=== PATIENT | male | born 1965 | race Caucasian/White ===

== ENCOUNTER 2017-02-17 11:12 | Emergency (ER) | payer OTHER ==
--- NOTE | ~2017-02-17 | US84 ---
[id number] [facility] [address]. [place], [place] [address] [id number] E MR#: [id number] Acc #: [id number] NAME: JULIUS ECHEVARRIA : 1965 SEX: M STUDY DATE/TIME: 02/17/2017 13:35 UNIT: CHAR ROOM: STUDY DESCRIPTION: US LE Veins Complete Russ Stdy Attending Physician: Jovi Cardenas M.D. Ordering Physician: Ed Surjit Paniagua M.D. Primary Care Physician: Yeison Patrick M.D. MEDICAL IMAGING REPORT This report is preliminary unless electronic signature is present EXAM Bilateral lower extremity venous duplex 02/17/2017 HISTORY Bilateral lower extremity pain and swelling for 3 months. Pain worsened in the last 3 weeks. History of ACL repair right knee. Evaluate for deep vein thrombosis. TECHNIQUE Venous ultrasound examination of both lower extremities was performed using grayscale, spectral Doppler and color flow Doppler imaging. FINDINGS The examination is negative. There is no evidence of deep venous thrombus from the groin to the lower calf bilaterally. Visualized greater saphenous veins are also patent. IMPRESSION Negative examination. No evidence of lower extremity deep venous thrombosis. Dictated by... Deniz Ugalde M.D. THIS IS AN ELECTRONICALLY VERIFIED REPORT Deniz Ugalde M.D. at 02/18/2017 8:29 AM KRT/to TD: 02/17/2017 13:45 JOB #: [id number] MEDICAL IMAGING REPORT Page 1 of 1 COPY
[2017-02-17 10:21] LABS: URINE SOURCE CLEAN CATCH
[2017-02-17 10:27] LABS: URINE APPEARANCE CLEAR; URINE BILIRUBIN NEG (NEG); URINE BLOOD NEG (NEG); URINE COLOR YELLOW; URINE GLUCOSE NEG (NEG); URINE KETONE NEG (NEG); URINE LEUKOCYTE ESTERASE NEG (NEG); URINE NITRATE NEG (NEG); URINE PROTEIN NEG (NEG); URINE SPECIFIC GRAVITY 1.022 (1.003-1.035); URINE UROBILINOGEN 0.2 MG/DL (NEG)
[2017-02-17 10:28] LABS: BASOPHIL% 0.7 % (0-2.5); EOSINOPHIL# 0.1 X10e3 (0-0.7); EOSINOPHIL% 2.2 % (0.0-7.0); HEMATOCRIT 44.7 % (38.0-50.0); HEMOGLOBIN 15.1 gm/dL (13.0-16.0); LYMPHOCYTE# 2.1 X10e3 (1.0-3.5); LYMPHOCYTE% 34.1 % (17.0-45.0); MEAN CORPUSCULAR HGB CONC 33.7 g/dL (30-36); MONOCYTE# 0.6 X10e3 (0-1.0); NEUTROPHIL# 3.2 X10e3 (1.5-7.1); PLATELET COUNT 229 X10e3 (140-420); RED BLOOD COUNT 5.02 X10e (3.90-5.60); RED CELL DISTRIBUTION WIDTH 12.8 % (11.0-15.5)
[2017-02-17 10:30] LABS: CULTURE INDICATED? NO
[2017-02-17 10:30] LABS: DIFF IND NO
[2017-02-17 10:53] LABS: ALBUMIN SERUM 4.3 g/dL (3.5-5.0); BILIRUBIN, DIRECT 0.1 mg/dL (0.0-0.2); BILIRUBIN,INDIRECT 0.4 mg/dL (0.0-0.9); BILIRUBIN,TOTAL 0.5 mg/dL (0.2-2.0); BUN/CREATININE RATIO 25.71; CALCIUM SERUM 9.2 mg/dL (8.4-10.2); CREATININE SERUM 0.7 mg/dL (0.6-1.4); GLOM FILT RATE Estimated 107.8 mL/min (>60); POTASSIUM 3.9 mmol/L (3.5-5.1); PROTEIN TOTAL SERUM 7.7 g/dL (6.0-8.3)
[~2017-02-17 11:12] MED LIST: AMOXICILLIN PO; ASPIRIN325 M1 PO; AUGMENTIN PO; BENADRYL PO; COREG12.5 MG PO; COUMADIN5 MG PO; FLECAINIDE ACE100 MG PO; HYDROCHLOROTHIA25 MG PO; HYDROCODON-ACE1 EAC4 PO; KETOPROFEN PO; LORTAB 10-5001 EACH PO; LORTAB 10/500 T1 TAB PO; MOBIC15 MG PO; NEXIUM PO; PRILOSEC20 M1 PO; PRILOSEC40 MG PO; UNKNOWN BP MED
== END 2017-02-17 13:55 | disposition home or self-care (01) ==
LOC: CED 11:12
DX: R60.0 Localized edema (principal); G47.33 Obstructive sleep apnea (adult) (pediatric); I48.91 Unspecified atrial fibrillation; K21.9 Gastro-esophageal reflux disease without esophagitis; I10 Essential (primary) hypertension; Z90.49 Acquired absence of other specified parts of digestive tract; Z98.890 Other specified postprocedural states
CPT/HCPCS: 36415; 80048; 80076; 81003; 83690; 83880; 85025; 93970; 99284

== ENCOUNTER → 2017-02-25 | Outpatient (CLI) | payer OTHER ==
--- NOTE | ~2017-02-25 | US136 ---
[facility] A Service of [facility] RADIOLOGY TEXT RESULTS PATIENT: JULIUS ECHEVARRIA LOCATION: CNIV : 61 UNIT #: [id number] AGE: [address]: Pearl Hernandez MD SEX: M ORDER DR: [id number] [facility] [address]. [place], [place] [address] [id number] O MR#: [id number] Acc #: [id number] NAME: JULIUS ECHEVARRIA : 1965 SEX: M STUDY DATE/TIME: 02/25/2017 10:07 UNIT: CNIV ROOM: STUDY DESCRIPTION: U/L [facility] Art Study [facility] Bil Attending Physician: Pearl Hernandez M.D. Referring Physician: Pearl Hernandez M.D. Ordering Physician: Pearl Hernandez M.D. Primary Care Physician: Yeison Patrick M.D. MEDICAL IMAGING REPORT This report is preliminary unless electronic signature is present EXAM Ankle to brachial indices date of examination 02/25/2017 HISTORY Lower extremity edema. FINDINGS The right brachial pressure is 124 and the left brachial pressure is 118. The right dorsalis pedis pressure is 146, posterior tibial 151, and toe 165, for an ankle to brachial index of 1.22. The left dorsalis pedis pressure is 142, posterior tibial 155, and toe 162, for an ankle to brachial index of 1.25. Doppler waveform analysis indicates a triphasic signal in the posterior tibial and dorsalis pedis arteries bilaterally. Pulse volume recording tracings demonstrate a good amplitude signal at the ankle and digital level bilaterally. IMPRESSION Normal perfusion to both legs. Ankle to brachial index is 1.22 on the right and 1.25 on the left. Dictated by... Fuentes Chaudhry M.D. THIS IS AN ELECTRONICALLY VERIFIED REPORT Fuentes Chaudhry M.D. at 02/27/2017 5:20 PM [facility] A Service [facility] RADIOLOGY TEXT RESULTS PATIENT: JULIUS ECHEVARRIA LOCATION: [facility] : 61 UNIT #: [id number] AGE: [address]: Pearl Hernandez MD SEX: M ORDER DR: HEAVEN/samuel TD: 02/25/2017 19:21 JOB #: [id number] MEDICAL IMAGING REPORT Page 1 of 1 COPY
== END | disposition home or self-care (01) ==
LOC: CNIV 09:58
DX: R60.0 Localized edema (principal)
CPT/HCPCS: 93922

== ENCOUNTER 2017-07-29 06:57 | Emergency (ER) | payer OTHER ==
[~2017-07-29] VITALS: Ht 188 cm; Wt 136.1 kg
--- NOTE | ~2017-07-29 | CR150 ---
[facility] A Service of [facility] RADIOLOGY TEXT RESULTS PATIENT: JULIUS ECHEVARRIA LOCATION: [facility] : 61 UNIT #: [id number] AGE: [address]: Veronique Holloway APRN SEX: M ORDER DR: [id number] [facility] [address] [place] [address]. [place], [place] [address] [id number] E MR#: [id number] Acc #: [id number] NAME: JULIUS ECHEVARRIA. : 1965 SEX: M STUDY DATE/TIME: 07/29/2017 8:03 UNIT: [facility] ROOM: STUDY DESCRIPTION: CR Hip Min 2 Views Lt Attending Physician: Veronique Holloway A.P.R.N. Ordering Physician: Ed Surjit Paniagua M.D. Primary Care Physician: Yeison Patrick M.D. MEDICAL IMAGING REPORT This report is preliminary unless electronic signature is present EXAM Left hip series, 07/29/2017. HISTORY Pain. Chronic low back pain. TECHNIQUE AP radiograph of the pelvis presented with frogleg view of the left hip. FINDINGS No traumatic fracture or malalignment. Mild narrowing, bilateral hip joint spaces. Moderate degenerative change in the lower lumbar spine. Bowel gas pattern within normal limits. Ovoid radiodensity superimposed over ascending and decrease colon, favored to be ingested tablets. Periarticular soft tissues unremarkable. Dictated by... Chava Vides M.D. THIS IS AN ELECTRONICALLY VERIFIED REPORT Chava Vides M.D. at 07/31/2017 2:30 PM Jamey TD: 07/29/2017 14:09 JOB #: [id number] MEDICAL IMAGING REPORT Page 1 of 1 COPY
[2017-07-29 07:55] LABS: URINE SOURCE CLEAN CATCH
[2017-07-29 08:03] LABS: URINE APPEARANCE CLEAR; URINE BILIRUBIN NEG (NEG); URINE BLOOD NEG (NEG); URINE COLOR YELLOW; URINE GLUCOSE NEG (NEG); URINE KETONE NEG (NEG); URINE LEUKOCYTE ESTERASE NEG (NEG); URINE NITRATE NEG (NEG); URINE PROTEIN NEG (NEG); URINE SPECIFIC GRAVITY 1.013 (1.003-1.035); URINE UROBILINOGEN 0.2 MG/DL (NEG)
[2017-07-29 08:11] LABS: CULTURE INDICATED? NO
== END 2017-07-29 08:58 | disposition home or self-care (01) ==
LOC: CED 06:57
PROVIDERS: Nurse Practitioner
DX: M25.552 Pain in left hip (principal); K21.9 Gastro-esophageal reflux disease without esophagitis; Z90.49 Acquired absence of other specified parts of digestive tract; I49.9 Cardiac arrhythmia, unspecified; Z98.890 Other specified postprocedural states
CPT/HCPCS: 73502; 81003; 96372; 99283; J1885